=== PATIENT | female | born 1985 | race Caucasian/White ===

== ENCOUNTER 2016-02-25 10:21 | Emergency (ER) | payer MEDICAID ==
[~2016-02-25] VITALS: Ht 170.2 cm; Wt 102.1 kg
[2016-02-25 13:30] VITALS: BP 134/72
== END 2016-02-25 13:47 | disposition home or self-care (01) ==
LOC: ER 10:21
DX: O26.891 Other specified pregnancy related conditions, first trimester (principal); O99.331 Smoking (tobacco) complicating pregnancy, first trimester; F17.210 Nicotine dependence, cigarettes, uncomplicated; Z3A.01 Less than 8 weeks gestation of pregnancy; Z87.59 Personal history of other complications of pregnancy, childbirth and the puerperium
CPT/HCPCS: 36415; 76801; 84702

== ENCOUNTER → 2019-10-28 | Emergency (ER) | payer SELFPAY ==
[~2019-10-28] VITALS: Ht 170.2 cm; Wt 122.5 kg
[2019-10-28 13:39] VITALS: BP 121/80
== END | disposition home or self-care (01) ==
LOC: ER 13:17
DX: B02.9 Zoster without complications (principal); F17.210 Nicotine dependence, cigarettes, uncomplicated